=== PATIENT | female | born 1985 | race Caucasian/White ===

== ENCOUNTER 2025-01-01 14:00 | Emergency (ER) | payer MEDICAID ==
[~2025-01-01] VITALS: Ht 165.1 cm; Wt 59.0 kg
[2025-01-01] MEDS ORDERED: CEPH500T PO (15:11)
[2025-01-01] MEDS ORDERED: CEPHALEXIN MONOHYDRATE 500 MG CAPSULE PO ONE (15:14)
[2025-01-01] MEDS ORDERED: TDAP [DIPH/PERTUSSIS/TET] 0.5 ML VIAL IM ONE (15:15)
[2025-01-01] MEDS: TDAP [DIPH/PERTUSSIS/TET] 0.5 ML VIAL IM ONE (15:22)
[2025-01-01] MEDS: CEPHALEXIN MONOHYDRATE 500 MG CAPSULE PO ONE (15:23)
[2025-01-01 15:27] VITALS: BP 138/85; TEMP 98.8; O2SAT 100
== END 2025-01-01 15:27 | disposition home or self-care (01) ==
LOC: ER 14:00
DX: S61.211A Laceration without foreign body of left index finger without damage to nail, initial encounter (principal); I10 Essential (primary) hypertension; W45.8XXA Other foreign body or object entering through skin, initial encounter; Y93.89 Activity, other specified; Y92.89 Other specified places as the place of occurrence of the external cause; Y99.8 Other external cause status
CPT/HCPCS: 90715